=== PATIENT | female | born 1955 | race Caucasian/White ===

== ENCOUNTER 2025-08-14 08:53 | Emergency (ER) | payer MEDICARE, OTHER ==
[2025-08-14] MEDS ORDERED: Iopamidol 370 76% 100 ML VIAL ONE (09:00)
[2025-08-14] MEDS ORDERED: Furosemide 20 MG (2 mL) VIAL ONE (09:42)
[2025-08-14] MEDS ORDERED: dilTIAZem 25 MG/5 ML VIAL ONE (09:42)
[2025-08-14 09:57] LABS: Hematocrit 47.5 % (36.0-47.0); Hemoglobin 14.7 g/dL (12.0-16.0); Mean Corpuscular Hemoglobin 26.0 pg (27.0-31.0); Mean Corpuscular Volume 84.2 fl (78.0-98.0); Platelet Count 228 10x3/uL (130-400); Red Blood Cell (RBC) Count 5.65 mill/uL (4.20-5.40); White Blood Cell (WBC) Count 6.7 10x3/uL (4.8-10.8)
[2025-08-14 10:03] LABS: MDiff Complete? YES; Manual Diff?? YES
[2025-08-14 10:04] LABS: Platelet Adequacy Comment Appears Adequate
[2025-08-14 10:07] LABS: ALT (SGPT) 31 U/L (Less than 34); AST (SGOT) 24 U/L (11-34); Albumin 2.7 g/dL (3.1-4.5); Alkaline Phosphatase 146 U/L (40-110); Anion Gap 19 mmol/L (10-20); BUN (Urea Nitrogen) 15 mg/dL (9.8-20.1); Bilirubin, Total 2.0 mg/dL (0.3-1.2); Calc. Creatinine Clearance 0 mL/min (70-130); Calcium 8.0 mg/dL (7.8-10.44); Chloride 105 mmol/L (98-107); Globulin 3.4 g/dL (2.4-3.5); Glucose 111 mg/dL (83-110); Potassium 3.5 mmol/L (3.5-5.1); Sodium 140 mmol/L (136-145)
[2025-08-14] MEDS ORDERED: cefTRIAXone (ROCEPHIN) 2 GM VIAL ONE (10:09)
[2025-08-14 10:13] LABS: Troponin I Less than 0.010 ng/mL (< 0.028)
[2025-08-14 10:23] LABS: Carbon Dioxide 20 mmol/L (23-31)
[2025-08-14] MEDS ORDERED: Enoxaparin 80 MG (0.8 mL) SYRINGE ONE (11:20)
[2025-08-14 14:40] LABS: Troponin I 0.031 ng/mL (< 0.028)
[2025-08-14 14:56] LABS: Glucose, Urine (Dipstick) Negative (Negative); Leukocyte Negative (Negative); Protein, Urine (Dipstick) 30 mg/dL (Neg-Trace); Specific Gravity, Urine 1.010 (1.005-1.030)
[2025-08-14 15:04] LABS: Bacteria/HPF Rare-Few HPF (None Seen); CAUTI Indications for Culture Fever or rigors; Urine Culture Reflex No No; WBC/HPF None Seen HPF (0-3)
== END 2025-08-14 20:24 | disposition short-term general hospital (02) ==
LOC: MADERS 08:53
DX: A41.9 Sepsis, unspecified organism (principal); I26.99 Other pulmonary embolism without acute cor pulmonale; R07.2 Precordial pain; I48.91 Unspecified atrial fibrillation; I11.0 Hypertensive heart disease with heart failure; I50.9 Heart failure, unspecified; E78.00 Pure hypercholesterolemia, unspecified; Z95.5 Presence of coronary angioplasty implant and graft; Z79.899 Other long term (current) drug therapy
CPT/HCPCS: 71045; 71275; 80053; 81001; 83605; 83880; 84443; 84484; 85025; 85379; 87040; 93005; 94760; 96365; 96372; 96375; J0696; J1650; J1940; J2272; Q9967

== ENCOUNTER 2025-09-17 16:17 | Emergency (ER) | payer MEDICARE ==
[2025-09-17 18:19] LABS: ALT (SGPT) 29 U/L (Less than 34); AST (SGOT) 27 U/L (11-34); Albumin 3.4 g/dL (3.1-4.5); Alkaline Phosphatase 139 U/L (40-110); Anion Gap 14 mmol/L (10-20); BUN (Urea Nitrogen) 13 mg/dL (9.8-20.1); Bilirubin, Total 3.3 mg/dL (0.3-1.2); Calc. Creatinine Clearance 0 mL/min (70-130); Calcium 8.8 mg/dL (7.8-10.44); Carbon Dioxide 24 mmol/L (23-31); Chloride 106 mmol/L (98-107); Globulin 4.2 g/dL (2.4-3.5); Glucose 119 mg/dL (83-110); Potassium 3.3 mmol/L (3.5-5.1); Sodium 141 mmol/L (136-145)
[2025-09-17 18:22] LABS: Hematocrit 40.8 % (36.0-47.0); Hemoglobin 12.3 g/dL (12.0-16.0); MDiff Complete? YES; Mean Corpuscular Hemoglobin 27.1 pg (27.0-31.0); Mean Corpuscular Volume 90.1 fl (78.0-98.0); Platelet Adequacy Comment Appears Adequate; Platelet Count 226 10x3/uL (130-400); Red Blood Cell (RBC) Count 4.53 mill/uL (4.20-5.40); White Blood Cell (WBC) Count 5.6 10x3/uL (4.8-10.8)
== END 2025-09-17 20:31 ==
LOC: MADERS 16:17
DX: S01.01XD Laceration without foreign body of scalp, subsequent encounter (principal); I48.20 Chronic atrial fibrillation, unspecified; E80.6 Other disorders of bilirubin metabolism; E87.6 Hypokalemia; E78.00 Pure hypercholesterolemia, unspecified; I11.0 Hypertensive heart disease with heart failure; I50.9 Heart failure, unspecified; J45.909 Unspecified asthma, uncomplicated; W01.10XD Fall on same level from slipping, tripping and stumbling with subsequent striking against unspecified object, subsequent encounter; Z79.899 Other long term (current) drug therapy; Z79.01 Long term (current) use of anticoagulants; Z79.51 Long term (current) use of inhaled steroids; Z95.0 Presence of cardiac pacemaker
CPT/HCPCS: 70450; 80053; 85025; 93005